=== PATIENT | female | born 2005 | race Two or more races ===

== ENCOUNTER 2023-06-14 12:19 | Outpatient (OUT) | payer OTHER, SELFPAY ==
--- NOTE | 2023-06-14 12:40 | ECG_ITS ---
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
[2023-06-14 13:16] LABS: Basophils Percent Auto 0.8 % (0.2-2.0); Eosinophils Absolute Auto 0.1 10^3/uL (0.0-0.7); Hematocrit 39.5 % (36.0-48.0); Hemoglobin 13.3 g/dL (12.0-16.0); Immature Granulocytes Abs Auto 0.02 10^3/uL (0.00-0.03); Immature Granulocytes Pct Auto 0.4 % (0.0-0.5); Lymphocytes Absolute Auto 1.9 10^3/uL (1.2-3.8); Lymphocytes Percent Auto 38.5 % (20.5-60.0); Mean Corpuscular HGB Conc 33.7 g/dL (29.9-35.2); Mean Corpuscular Hemoglobin 28.7 pg (26.7-34.0); Mean Corpuscular Volume 85.3 fL (81.0-99.0); Mean Platelet Volume 8.4 fL (9.5-13.5); Monocytes Absolute Auto 0.4 10^3/uL (0.3-0.8); Monocytes Percent Auto 8.6 % (1.7-12.0); Neutrophils Absolute Auto 2.5 10^3/uL (1.4-6.5); Neutrophils Percent Auto 50.7 % (43.0-75.0); Platelet Count 329 10^3/uL (150-450); Red Blood Count 4.63 10^6/uL (4.20-5.40); Red Cell Distribution Width 11.9 % (11.0-15.0); White Blood Count 4.9 10^3/uL (4.0-11.0)
[2023-06-14 15:33] LABS: INR 0.97; Partial Thromboplastin Time 29.8 sec (22.3-36.2); Prothrombin Time 10.3 sec (9.0-11.6)
== END 2023-06-14 12:20 | disposition home or self-care (01) ==
PROVIDERS: PCP Nurse Practitioner; Visit Provider Otolaryngology
DX: Z01.810 Encounter for preprocedural cardiovascular examination (principal); Z01.812 Encounter for preprocedural laboratory examination; R04.0 Epistaxis
CPT/HCPCS: 85025; 85610; 85730; 93005

== ENCOUNTER 2023-06-22 07:30 | Day surgery (SDC) | payer OTHER, SELFPAY ==
[2023-06-14 12:51] VITALS: BP 126/78; PULSE 71; RESP 16; TEMP 36.3; O2SAT 100; BMI 28.1
[2023-06-22] VITALS (10 sets, daily range): BP systolic 103–140; BP diastolic 41–85; PULSE 74–96; RESP 11–23; TEMP 35.9–36.3; O2SAT 97–100; BMI 27.6
--- NOTE | 2023-06-22 | OP_ITS ---
OPERATION DATE: 06/22/2023 PRIMARY CARE PROVIDER: VANESSA Robin SURGEON: Alivia Witt M.D. PREOPERATIVE DIAGNOSIS: Recurrent right epistaxis. POSTOPERATIVE DIAGNOSIS: Recurrent right epistaxis and left epistaxis. PROCEDURE: Bilateral nasal endoscopy and cautery. ANESTHESIA: General endotracheal. COMPLICATIONS: None. FINDINGS: Prominent right anteroseptal veins and active bleeding from the left anterior septum. INDICATIONS: This 18-year-old woman presented with recurrent epistaxis from the right due to the above findings and was noted intraoperatively to also have active bleeding from a prominent vein of the left anterior septum. PROCEDURE: Patient identified in the holding area and taken back to the OR, where she was placed in the supine position. After induction of general endotracheal anesthesia, the right nose was approached with the nasal endoscope and the prominent veins noted preoperatively were cauterized with suction Bovie. Afrin soaked pledgets were placed in each side of the nose, and the patient was noted to have brisk bleeding from the left anterior septum as well. After waiting adequate time for hemostasis, the left anterior septal pledget was removed and the prominent anterior septal vein was cauterized with suction Bovie. Then, both sides of the nose were examined with the nasal endoscope, and there were no other significant findings. Antibiotic ointment was then placed in each side of the nose and the patient was awakened and taken to the recovery room in good condition. KAY
--- OUTSIDE RECORDS SUMMARY | 2023-06-22 07:35 | XMS_ITS | CCD ---
Author Name Unknown Address [address] [place] [address] Organization [facility] Care Team Providers Care Customer Support Representative Name Role Phone HERNAN SOUSA Unavailable Unavailable ESCOTO, DIPAKKUMAR Unavailable Unavailable ESCOTO, DIPAKKUMAR Unavailable Unavailable GISSER ABDULKADIR Unavailable Unavailable ESCOTO, DIPAKKUMAR Unavailable Unavailable ESCOTO, DIPAKKUMAR Unavailable Unavailable ESCOTO, DIPAKKUMAR Unavailable Unavailable GISSER ABDULKADIR Unavailable Unavailable GISSER, ABDULKADIR Unavailable Unavailable ESCOTO, DIPAKKUMAR Unavailable Unavailable ESCOTO, DIPAKKUMAR Unavailable Unavailable CHAVA JURADO Unavailable Unavailable CHAVA JURADO Unavailable Unavailable PROVIDER, UNKNOWN Unavailable Unavailable ESCOTO, DIPAKKUMAR Unavailable Unavailable Lynn Escoto MD Primary Care Provider [phone] LYNN ESCOTO Primary Care Unavailable DEJA JIM Referring UnavailHaris Mosher DO Primary Care Provider Cami Wagner NP Unavailable Brittni Pedro NP Unavailable CAMI WAGNER Attending Unavailable ALIVIA IPNO Attending Unavailable CAMI WAGNER Referring Unavailable Allergies Allergy Classification Reported Allergen(s) Allergy Type Date of Onset Reaction(s) Facility (6 sources) Amoxicillin Drug Allergy 3 Diarrhea [facility] (6 sources) Amoxicillin-Pot Clavulanate Drug Allergy 3 GI intolerance [facility] Medications Current Medications Medication Drug Class(es) Dates Sig (Normalized) Sig (Original) [id number] 200 actuat albuterol 0.09 mg/actuat metered dose inhaler (7 sources) beta2-Adrenergic Agonist Start: 11-17-2019 take 2 puff(s) by inhalation every six hours as needed for wheezing albuterol sulfate HFA (PROAIR HFA) 108 (90 Base) MCG/ACT inhaler Inhale 2 puffs into the lungs every 6 hours as needed for Wheezing 1 Inhaler 3 11/17/2019 Active take 1 puff(s) by in halation every four hours albuterol HFA 90 mcg/act inhaler Inhale 1 puff every 4 (four) hours if needed. 0 Active ethinyl estradiol 0.035 mg / norgestimate 0.25 mg oral tablet (1 source) Progestin, Estrogen Start: 11-21-2020 take 1 tablet by mouth once daily norgestimate-ethinyl estradiol (ORTHO-CYCLEN, 28,) 0.25-35 MG-MCG per tablet Indications: Irregular menses Take 1 tablet by mouth daily 3 packet 4 11/21/2020 Active hyoscyamine sulfate 0.125 mg oral tablet (6 sources) take 1 tablet by mouth every four hours as needed for diarrhea hyoscyamine (Levsin) 0.125 MG tablet Take 0.125 mg by mouth every 4 (four) hours if needed for cramping or diarrhea. 0 Active loratadine 10 mg oral tablet (6 sources) loratadine (Clar itin) 10 MG tablet Take 10 mg by mouth if needed for allergies. 0 Active 24 hr metFORMIN hydrochloride 500 mg extended release oral tablet (2 sources) Biguanide Start: 01-21-2023 End: 01-21-2024 take 1 tablet by mouth every twenty-four hours at mealtime metFORMIN XR (Glucophage-XR) 500 MG 24 hr tablet Indications: Insulin resistance Take 1 tablet (500 mg) by mouth in the evening. Take with meals. Do not crush, chew, or split. 30 tablet 01/21/2023 06/01/2023 Discontinued (Therapy completed) montelukast 10 mg oral tablet (6 sources) Leukotriene Receptor Antagonist Start: 05-19-2022 take 1 tablet by mouth at bedtime montelukast (Singulair) 10 MG tablet Take 10 mg by mouth at bedtime. 0 05/19/2022 Active spironolactone 50 mg oral tablet (6 sources) Aldosterone Antagonist Start: 03-07-2023 take 1 tablet by mouth once daily spironolactone (Aldactone) 50 MG tablet Indications: PCOS (polycystic ovarian syndrome) TAKE 1 TABLET BY MOUTH EVERY DAY 90 tablet 3 03/07/2023 Active Problems Active Problems Problem Classification Problem Date Documented Da te Episodic/Chronic Conduction disorders (7 sources) Incomplete right bundle branch block; Translations: [Unspecified right bundle-branch block] Onset: 8 11-10-2017 Chronic Esophageal disorders (6 sources) Gastroesophageal reflux disease; Translations: [Gastro-esophageal reflux disease without esophagitis] Onset: 3 10-12-2022 Chronic Nonmalignant breast conditions (1 source) Mastodynia; Translations: [Mastodynia] Episodic Other endocrine disorders (7 sources) Polycystic ovary syndrome; Translations: [Polycystic ovarian syndrome] Onset: 7 07-15-2016 Chronic Other gastrointestinal disorders (7 sources) Irritable bowel syndrome with diarrhea; Translations: [Irritable bowel syndrome with diarrhea] Onset: 8 06-03-2020 Chronic Other upper respiratory disease (7 sources) Allergic rhinitis due to pollen; Translations: [Allergic rhinitis due to pollen] Onset: 8 09-03-2017 Chronic Other upper respiratory disease (3 sources) Epistaxis; Translations: [Epistaxis] 06-01-2023 Episodic Thyroid disorders (6 sources) Goiter; Translations: [Nontoxic goiter, unspecified] Onset: 3 10-12-2022 Chronic Past or Other Problems Problem Classification Problem Date Documented Da te Episodic/Chronic Biliary tract disease (7 sources) Biliary calculus; Translations: [Calculus of gallbladder without cholecystitis without obstruction] Onset: 11-02-2016 02-01-2017 Episodic Other gastrointestinal disorders (6 sources) Slow transit constipation; Translations: [Slow transit constipation] Onset: 10-12-2022 10-12-2022 Episodic Results Test Name Value Interpretation Reference Range Facility US Thyroidon 07-14-2021 US Thyroid HISTORY: Family history of thyroid cancer COMPARISON: None available TECHNIQUE: Ultrasound examination was performed of the thyroid gland. FINDINGS: The right lobe measures 5 x 1.6 x 1.5 cm. Normal blood flow identified to the right lobe of the thyroid gland. No nodules or masses identified. The left lobe measures 5.1 x 1.5 x 1.2 cm. Normal blood flow identified to the right lobe of the thyroid gland. No nodules or masses identified. The isthmus measures 0.22 cm. IMPRESSION: Normal examination. TI-RADS 1: Benign. No FNA required TI-RADS 2: Not suspicious. No FNA required TI-RADS 3: Mildly suspicious. FNA if greater than or equal to 2.5 cm. Follow-up if greater than or equal to 1.5 cm at 1, 3, and 5 years. TI-RADS 4: Moderately suspicious. FNA if greater than or equal to 1.5 cm. Follow-up if greater than or equal to 1 cm at 1, 2, 3, and 5 years. TI-RADS 5: Highly suspicious. FNA if greater than or equal to 1 cm. Follow-up if greater than or equal to 0.5 cm annually for up to 5 years. Report reported and signed by Alex Connors on 07/14/2021 1425 Normal [facility] Complete Blood Count with Au to Diffon 05-09-2021 Basophils (Bld) [#/Vol] 0.04 10*3/uL Normal 0.00-0.20 [facility] Specialist Comment on above: Performed By: #### V ITD, CBCAD, LIPD, CMP, TSH reflex FT4 #### [facility] [address], [place] [id number] Basophils/100 WBC (Bld) 0.9 % Normal [facility] Comment on above: Performed By: #### V ITD, CBCAD, LIPD, CMP, TSH reflex FT4 #### [facility] [address], [place] [id number] Eosinophils (Bld) [#/Vol] 0.06 10*3/uL Normal 0.02-0.50 [facility] Comment on above: Performed By: #### V ITD, CBCAD, LIPD, CMP, TSH reflex FT4 #### [facility] [address], [place] [id number] Eosinophils/100 WBC (Bld) 1.3 % Normal [facility] Comment on above: Performed By: #### V ITD, CBCAD, LIPD, CMP, TSH reflex FT4 #### [facility] [address], [place] [id number] Erythrocyte distribution width (RBC) [Ratio] 12.2 % Normal 11.0-15.0 [facility] Comment on above: Performed By: #### V ITD, CBCAD, LIPD, CMP, TSH reflex FT4 #### [facility] [address], [place] [id number] Hematocrit (Bld) [Volume fraction] 43.2 % Normal 35.0-47.0 [facility] Comment on above: Performed By: #### V ITD, CBCAD, LIPD, CMP, TSH reflex FT4 #### [facility] [address], [place] [id number] Hemoglobin (Bld) [Mass/Vol] 14.2 g/dL Normal 11.6-15.5 [facility] Comment on above: Performed By: #### V ITD, CBCAD, LIPD, CMP, TSH reflex FT4 #### [facility] [address], [place] [id number] Lymphocytes (Bld) [#/Vol] 1.9 10*3/uL Normal 0.9-3.9 [facility] Comment on above: Performed By: #### V ITD, CBCAD, LIPD, CMP, TSH reflex FT4 #### [facility] [address], [place] [id number] Lymphocytes/100 WBC (Bld) 40.3 % Normal [facility] Comment on above: Performed By: #### V ITD, CBCAD, LIPD, CMP, TSH reflex FT4 #### [facility] [address], [place] [id number] MCH (RBC) [Entitic mass] 28.6 pg Normal 27.0-33.0 [facility] Comment on above: Performed By: #### V ITD, CBCAD, LIPD, CMP, TSH reflex FT4 #### [facility] [address], [place] [id number] MCHC (RBC) [Mass/Vol] 32.9 g/dL Normal 32.0-36.0 [facility] Comment on above: Performed By: #### V ITD, CBCAD, LIPD, CMP, TSH reflex FT4 #### [facility] [address], [place] [id number] MCV (RBC) [Entitic vol] 87 fL Normal 80-100 [facility] Specialist Comment on above: Performed By: #### V ITD, CBCAD, LIPD, CMP, TSH reflex FT4 #### [facility] [address], [place] [id number] Monocytes (Bld) [#/Vol] 0.5 10*3/uL Normal 0.2-0.9 [facility] Specialist Comment on above: Performed By: #### V ITD, CBCAD, LIPD, CMP, TSH reflex FT4 #### [facility] [address], [place] [id number] Monocytes/100 WBC (Bld) 10.2 % Normal [facility] Specialist Comment on above: Performed By: #### V ITD, CBCAD, LIPD, CMP, TSH reflex FT4 #### [facility] [address], [place] [id number] Neutrophils (Bld) [#/Vol] 2.2 10*3/uL Normal 1.5-7.8 [facility] Specialist Comment on above: Performed By: #### V ITD, CBCAD, LIPD, CMP, TSH reflex FT4 #### [facility] [address], [place] [id number] Neutrophils/100 WBC (Bld) 47.1 % Normal [facility] Specialist Comment on above: Performed By: #### V ITD, CBCAD, LIPD, CMP, TSH reflex FT4 #### [facility] [address], [place] [id number] Platelet mean volume (Bld) [Entitic vol] 9.30 fL Normal 7.50-12.50 [facility] Specialist Comment on above: Performed By: #### V ITD, CBCAD, LIPD, CMP, TSH reflex FT4 #### [facility] [address], [place] [id number] Platelets (Bld) [#/Vol] 289 10*3/uL Normal 140-400 [facility] Specialist Comment on above: Performed By: #### V ITD, CBCAD, LIPD, CMP, TSH reflex FT4 #### [facility] [address], [place] [id number] RBC (Bld) [#/Vol] 4.97 10*6/uL Normal 3.90-5.20 [facility] [employer] Comment on above: Performed By: #### V ITD, CBCAD, LIPD, CMP, TSH reflex FT4 #### [facility] [address], [place] [id number] RDW-SD 38.6 fL Normal 37.0-50.0 [facility] [employer] Comment on above: Performed By: #### V ITD, CBCAD, LIPD, CMP, TSH reflex FT4 #### [facility] [address], [place] [id number] WBC (Bld) [#/Vol] 4.6 10*3/uL Normal 3.8-11.0 [facility] [employer] Comment on above: Performed By: #### V ITD, CBCAD, LIPD, CMP, TSH reflex FT4 #### [facility] [address], [place] [id number] Comprehensive Metabolic Pane [facility] 05-09-2021 Albumin [Mass/Vol] 5.1 g/dL Normal 3.6-5.1 [facility] [employer] Comment on above: Performed By: #### V ITD, CBCAD, LIPD, CMP, TSH reflex FT4 #### [facility] [address], [place] [id number] Albumin/Globulin [Mass ratio] 2.1 {ratio} Normal 1.0-2.5 [facility] [employer] Comment on above: Performed By: #### V ITD, CBCAD, LIPD, CMP, TSH reflex FT4 #### [facility] [address], [place] [id number] ALP [Catalytic activity/Vol] 59 U/L Normal 35-119 [facility] [employer] Comment on above: Performed By: #### V ITD, CBCAD, LIPD, CMP, TSH reflex FT4 #### [facility] [address], [place] [id number] ALT [Catalytic activity/Vol] 18 U/L Normal 6-33 [facility] [employer] Comment on above: Result Comment: 03/26 Female reference range changed. Performed By: #### V ITD, CBCAD, LIPD, CMP, TSH reflex FT4 #### [facility] [address], [place] [id number] Anion gap [Moles/Vol] 18 mmol/L Normal 12-20 [facility] Comment on above: Result Comment: Effdouglas ctive 05/01/2019 reference range changed. Performed By: #### V ITD, CBCAD, LIPD, CMP, TSH reflex FT4 #### [facility] [address], [place] [id number] AST [Catalytic activity/Vol] 21 U/L Normal 9-34 [facility] Comment on above: Performed By: #### V ITD, CBCAD, LIPD, CMP, TSH reflex FT4 #### [facility] [address], [place] [id number] Bilirubin [Mass/Vol] 0.41 mg/dL Normal 0.30-1.20 [facility] Comment on above: Performed By: #### V ITD, CBCAD, LIPD, CMP, TSH reflex FT4 #### [facility] [address], [place] [id number] BUN/CREA 22 Ratio Normal 6-22 [facility] Comment on above: Performed By: #### V ITD, CBCAD, LIPD, CMP, TSH reflex FT4 #### [facility] [address], [place] [id number] Calcium [Mass/Vol] 10.0 mg/dL Normal 8.6-10.2 [facility] Comment on above: Performed By: #### V ITD, CBCAD, LIPD, CMP, TSH reflex FT4 #### [facility] [address], [place] [id number] Chloride [Moles/Vol] 103 mmol/L Normal 98-107 [facility] Comment on above: Performed By: #### V ITD, CBCAD, LIPD, CMP, TSH reflex FT4 #### [facility] [address], [place] [id number] CO2 [Moles/Vol] 23 mmol/L Normal 20-31 [facility] Comment on above: Performed By: #### V ITD, CBCAD, LIPD, CMP, TSH reflex FT4 #### [facility] [address], [place] [id number] Creatinine [Mass/Vol] 0.5 mg/dL Low 0.6-1.4 [facility] Text[employer] Comment on above: Performed By: #### V ITD, CBCAD, LIPD, CMP, TSH reflex FT4 #### [facility] [address], [place] [id number] Globulin (S) [Mass/Vol] 2.4 g/dL Normal 1.9-3.7 [facility] [employer] Comment on above: Performed By: #### V ITD, CBCAD, LIPD, CMP, TSH reflex FT4 #### [facility] [address], [place] [id number] Glucose [Mass/Vol] 87 mg/dL Normal 65-99 [facility] [place] [employer] Comment on above: Result Comment: For FASTING Glucose --- ADA reference ranges: Normal 65-99 mg/dl Prediabetes 100-125 Diabetes >/= 126 Performed By: #### V ITD, CBCAD, LIPD, CMP, TSH reflex FT4 #### [facility] [address], [place] [id number] Potassium [Moles/Vol] 4.1 mmol/L Normal 3.5-5.5 [facility] Text[employer] Comment on above: Performed By: #### V ITD, CBCAD, LIPD, CMP, TSH reflex FT4 #### [facility] [address], [place] [id number] Protein [Mass/Vol] 7.5 g/dL Normal 6.1-8.1 [facility] [place] [employer] Comment on above: Performed By: #### V ITD, CBCAD, LIPD, CMP, TSH reflex FT4 #### [facility] [address], [place] [id number] Sodium [Moles/Vol] 139 mmol/L Normal 135-146 [facility] [place] [employer] Comment on above: Performed By: #### V ITD, CBCAD, LIPD, CMP, TSH reflex FT4 #### [facility] [address], [place] [id number] Urea nitrogen [Mass/Vol] 12 mg/dL Normal 7-25 [facility] Text[employer] Comment on above: Performed By: #### V ITD, CBCAD, LIPD, CMP, TSH reflex FT4 #### [facility] [address] [place] [id number] Hemoglobin A1Con 05-09-2021 EAG 93.93 Normal [facility] Specialist Comment on above: Performed By: #### 3 6336, %SBNOCULI, 38030C, %SBRAST, 3020X, 7302A #### [facility] [address] [place] [address] HbA1c (Bld) [Mass fraction] 4.9 % Normal 4.0-6.0 [facility] Specialist Comment on above: Performed By: #### 3 6336, %SBNOCULI, [id number], %SBRAST, 3020X, 7302A #### [facility] [address] [place] [address] Lipid Panelon 05-09-2021 Cholesterol [Mass/Vol] 189 mg/dL Normal 125-200 [facility] Specialist Comment on above: Result Comment: Low risk < 200mg/dL Borderline risk 201-239 mg/dl High risk > or equal to 240 Performed By: #### V ITD, CBCAD, LIPD, CMP, TSH reflex FT4 #### [facility] [address] [place] [id number] Cholesterol in HDL [Mass/Vol] 73 mg/dL Normal >40 [facility] [employer] Comment on above: Result Comment: High Cardiovascular Risk HDL <40 mg/dL Low Cardiovascular Risk HDL > or equal to 60 mg/dl Performed By: #### V ITD, CBCAD, LIPD, CMP, TSH reflex FT4 #### [facility] [address] [place], [place] [id number] Cholesterol in LDL [Mass/Vol] 101 mg/dL Normal [facility] Specialist Comment on above: Result Comment: LDL ATP III CLASSIFICATION LDL less than 100 mg/dl Optimal LDL 100-129 mg/dl Near or above optimal LDL 130-159 Borderline high LDL 160-189 High LDL greater than 189 mg/dl Very High Performed By: #### V ITD, CBCAD, LIPD, CMP, TSH reflex FT4 #### [facility] [address] [place] [id number] Cholesterol in VLDL [Mass/Vol] 15 mg/dL Normal [facility] [place] [employer] Comment on above: Performed By: #### V ITD, CBCAD, LIPD, CMP, TSH reflex FT4 #### [facility] [address], [place] [id number] Cholesterol.total/Cho lesterol in HDL [Mass ratio] 3 {ratio} Normal [facility] Specialist Comment on above: Performed By: #### V ITD, CBCAD, LIPD, CMP, TSH reflex FT4 #### [facility] [address], [place] [id number] Triglyceride [Mass/Vol] 74 mg/dL Normal 30-150 [facility] Specialist Comment on above: Result Comment: TRIG ATPIII CLASSIFICATIONS TRIG less than 150 mg/dl Normal TRIG 150-199 mg/dl Borderline High TRIG 200-500 mg/dl High TRIG greather than 500 mg/dl Very High Performed By: #### V ITD, CBCAD, LIPD, CMP, TSH reflex FT4 #### [facility] [address], [place] [id number] Q - CELIAC DISEASE COMP PANE Kaveh 05-09-2021 IMMUNOGLOBULIN A 183 mg/dL Normal 47-310 [facility] Specialist Comment on above: Order Comment: [facility] performed at: [facility] [facility], [address] [place] [address], [address] [place] [address], [address] [place] [address], Drilling Engineer: Alfa William MD [facility] Date/Time: [facility] Results Received Date/Time: [facility] Reported Date/Time: Performed By: #### 3 6336, %SBNOCULI, [id number], %SBRAST, 3020X, 7302A #### [facility] [address] [place] [address] INTERPRETATION SEE NOTE Normal [facility] Specialist Comment on above: Order Comment: [facility] performed at: [facility], [address] [facility], [address] [place] [address], [phone], Drilling Engineer: Alfa William MD [facility] Date/Time: [facility] Results Received Date/Time: [facility] Reported Date/Time: Result Comment: No s erological evidence for celiac disease is present. tTg may normalize in individuals with celiac disease who maintain a gluten free diet. If high suspicion of celiac disease, consider HLA DQ2 and DQ8 testing to rule out celiac disease. Performed By: #### 3 6336, %SBNOCULI, 71143V, %SBRAST, 3020X, 7302A #### [facility] [address] [place] [address] Result Comment: Specific Level of Allergen IGE Class kU/L Specific IGE Antibody ----- --------- 0 <0.10 Absent/Undetectable 0/1 0.10-0.34 Very Low Level 1 0.35-0.69 Low Level 2 0.70-3.49 Moderate Level 3 3.50-17.4 High Level 4 17.5-49.9 Very High Level 5 50-100 Very High Level 6 >100 Very High Level The clinical relevance of allergen results of 0.10-0.34 kU/L are undetermined and intended for specialist use. Allergens denoted with a include results using one or more analyte specific reagents. In those cases, the test was developed and its analytical performance characteristics have been determined by [employer]. It has not been cleared or approved by the U.S. Food and Drug Administration. This assay has been validated pursuant to the CLIA regulations and is used for clinical purposes. TISSUE TRANSGLUTAMINASE AB, IGA <1.0 Normal [facility] [employer] Comment on above: Order Comment: [facility] performed at: [facility], [employer] [facility], [address] [place] [address], [address] [place] [address], [place], [address], Drilling Engineer: Alfa William MD [facility] Date/Time: [facility] Results Received Date/Time: [facility] Reported Date/Time: Result Comment: Valu e Interpretation ----- <15.0 Antibody not detected > or = 15.0 Antibody detected Performed By: #### 3 6336, %SBNOCULI, [id number], %SBRAST, 3020X, 7302A #### [facility] [address] [place] [address] Q - FOOD ALLERGY PROFILEon 0 05-09-2021 ALMOND (F20) IGE <0.10 Normal [facility] Specialist Comment on above: Order Comment: [facility] performed at: [employer], [employer] [facility], [address], [address] [place] [address], [address] [place] [address], Drilling Engineer: Alfa William MD [facility] Date/Time: [facility] Results Received Date/Time: [facility] Reported Date/Time: Performed By: #### 3 6336, %SBNOCULI, 79830D, %SBRAST, 3020X, 7302A #### [facility] Default [address] [place] [address] CASHEW NUT (F202) IGE <0.10 Normal [facility] Comment on above: Order Comment: [facility] performed at: [employer], [employer] [facility], [address], [address] [place] [address], [address] [place] [address], Drilling Engineer: Alfa William MD [facility] Date/Time: [facility] Results Received Date/Time: [facility] Reported Date/Time: Performed By: #### 3 6336, %SBNOCULI, [id number], %SBRAST, 3020X, 7302A #### [facility] [address] [place] [address] CLASS 0 Normal [facility] Specialist Comment on above: Order Comment: [facility] performed at: [employer], [employer] [facility], [address], [address] [place] [address], [address] [place] [address], Drilling Engineer: Alfa William MD [facility] Date/Time: [facility] Results Received Date/Time: [facility] Reported Date/Time: Performed By: #### 3 6336, %SBNOCULI, 61731B, %SBRAST, 3020X, 7302A #### [facility] [address] [place] [address] CLASS 0/1 Normal [facility] [employer] Comment on above: Order Comment: [facility] performed at: [employer], [employer] [facility], [address] [facility], [address] [place] [address], [address] [place] [address], Drilling Engineer: Alfa William MD [facility] Date/Time: [facility] Results Received Date/Time: [facility] Reported Date/Time: Performed By: #### 3 6336, %SBNOCULI, 47671R, %SBRAST, 3020X, 7302A #### [facility] Default [address] [place] [address] CODFISH (F3) IGE <0.10 Normal [facility] Specialist Comment on above: Order Comment: [facility] performed at: [employer], [employer] [facility], [address] [place] [address], [address] [place] [address], [address] [place] [address], Drilling Engineer: Alfa William MD [facility] Date/Time: [facility] Results Received Date/Time: [facility] Reported Date/Time: Performed By: #### 3 6336, %SBNOCULI, 28850E, %SBRAST, 3020X, 7302A #### [facility] Default [address] [place] [address] COW'S MILK (F2) IGE <0.10 Normal [facility] Specialist Comment on above: Order Comment: [facility] performed at: [employer], [employer] [facility], [address] [place] [address], [address] [place] [address], [address] [place] [address], Drilling Engineer: Alfa William MD [facility] Date/Time: [facility] Results Received Date/Time: [facility] Reported Date/Time: Performed By: #### 3 6336, %SBNOCULI, 10599S, %SBRAST, 3020X, 7302A #### [facility] Default [address] [place] [address] EGG WHITE (F1) IGE <0.10 Normal [facility] rn [place] [employer] Comment on above: Order Comment: [facility] performed at: [facility], [employer] [facility], [address] [place] [address], [address] [place] [address], [address] [place] [address], Drilling Engineer: Alfa William MD [facility] Date/Time: [facility] Results Received Date/Time: [facility] Reported Date/Time: Performed By: #### 3 6336, %SBNOCULI, [id number], %SBRAST, 3020X, 7302A #### [facility] [address] [place] [address] HAZELNUT (F17) IGE 0.10 kU/L High [facility] [place] [employer] Comment on above: Order Comment: Quest Testing performed at: [facility], [employer] [facility], [address] [place] [address], [address] [place] [address], [address] [place] [address], Drilling Engineer: Alfa William MD Quest Collection Date/Time: Quest Results Received Date/Time: Quest Reported Date/Time: Performed By: #### 3 [id number], %SBNOCULI, [id number], %SBRAST, 3020X, [id number] #### [facility] Default [address] [place] [address] PEANUT (F13) IGE <0.10 Normal [facility] [employer] Comment on above: Order Comment: Quest Testing performed at: [facility], [employer] [facility], [address] [facility], [address] [place] [address], [address] [place] [address], Drilling Engineer: Alfa William MD Quest Collection Date/Time: Quest Results Received Date/Time: Quest Reported Date/Time: Performed By: #### 3 [id number], %SBNOCULI, [id number], %SBRAST, 3020X, [id number] #### [facility] Default [address] [place] [address] SALMON (F41) IGE <0.10 Normal [facility] Specialist Comment on above: Order Comment: Quest Testing performed at: [employer], [employer] [facility], [address] [place] [address], [address] [place] [address], [address] [place] [address], Drilling Engineer: Alfa William MD Quest Collection Date/Time: Quest Results Received Date/Time: Quest Reported Date/Time: Performed By: #### 3 [id number], %SBNOCULI, [id number], %SBRAST, 3020X, [id number] #### [facility] Default [address] [place] [address] SCALLOP (F338) IGE <0.10 Normal [facility] Comment on above: Order Comment: Quest Testing performed at: [employer], [employer] [facility], [address] [place] [address], [address] [place] [address], [address] [place] [address], Drilling Engineer: Alfa William MD Quest Collection Date/Time: Quest Results Received Date/Time: Quest Reported Date/Time: Performed By: #### 3 [id number], %SBNOCULI, [id number], %SBRAST, 3020X, [id number] #### [facility] Default [address] [place] [address] SESAME SEED (F10) IGE 0.12 kU/L [facility] Comment on above: Order Comment: Quest Testing performed at: [facility], [employer] [facility], [facility], [address] [place] [address], [address] [place] [address], Drilling Engineer: Alfa William MD Quest Collection Date/Time: Quest Results Received Date/Time: Quest Reported Date/Time: Performed By: #### 3 [id number], %SBNOCULI, 48044N, %SBRAST, 3020X, [id number] #### [facility] Default [address] [place] [address] SHRIMP (F24) IGE <0.10 Normal [facility] [employer] Comment on above: Order Comment: Quest Testing performed at: [facility], [employer] [facility], [address] , [address] [place] [address], [address] [place] [address], Drilling Engineer: Alfa William MD Quest Collection Date/Time: Quest Results Received Date/Time: Quest Reported Date/Time: Performed By: #### 3 [id number], %SBNOCULI, [id number], %SBRAST, 3020X, [id number] #### [facility] Default [address] [place] [address] SOYBEAN (F14) IGE <0.10 Normal [facility] Specialist Comment on above: Order Comment: Quest Testing performed at: [facility], [employer] [facility], [address], [address] [place] [address], [address] [place] [address], Drilling Engineer: Afla William MD Quest Collection Date/Time: Quest Results Received Date/Time: Quest Reported Date/Time: Performed By: #### 3 [id number], %SBNOCULI, [id number], %SBRAST, 3020X, [id number] #### [facility] Default [address] [place] [address] TUNA (F40) IGE <0.10 Normal [facility] Specialist Comment on above: Order Comment: Quest Testing performed at: [facility], [employer] [facility], [address], [address] [place] [address], [address] [place] [address], Drilling Engineer: Alfa William MD Quest Collection Date/Time: Quest Results Received Date/Time: Quest Reported Date/Time: Performed By: #### 3 [id number], %SBNOCULI, 25192A, %SBRAST, 3020X, [id number] #### [facility] Default [address] [place] [address] WALNUT (F256) IGE <0.10 Normal [facility] Text[employer] Comment on above: Order Comment: Quest Testing performed at: [facility], [employer] [facility], [address] , [address] [place] [address], [address] [place] [address], Drilling Engineer: Alfa William MD Quest Collection Date/Time: Quest Results Received Date/Time: Quest Reported Date/Time: Performed By: #### 3 [id number], %SBNOCULI, 64622D, %SBRAST, 3020X, [id number] #### [facility] Default [address] [place] [address] WHEAT (F4) IGE <0.10 Normal [facility] Specialist Comment on above: Order Comment: Quest Testing performed at: [facility], [employer] [facility], [address] , [address] [place] [address], [address] [place] [address], Drilling Engineer: Alfa William MD Quest Collection Date/Time: Quest Results Received Date/Time: Quest Reported Date/Time: Performed By: #### 3 [id number], %SBNOCULI, 43114E, %SBRAST, 3020X, [id number] #### [facility] Default [address] [place] [address] Q - THYROID PEROXIDASE AND T G ABon 05-09-2021 THYROGLOBULIN ANTIBODIES <1 Normal < or = 1 [facility] [employer] Comment on above: Order Comment: Quest Testing performed at: [facility], [employer] [facility], [address] , [address] [place] [address], [address] [place] [address], Drilling Engineer: Alfa William MD Quest Collection Date/Time: Quest Results Received Date/Time: Quest Reported Date/Time: Performed By: #### 3 [id number], %SBNOCULI, 54906K, %SBRAST, 3020X, [id number] #### [facility] Default [address] [place] [address] THYROID PEROXIDASE ANTIBODIES 1 IU/mL Normal <9 [facility] [employer] Comment on above: Order Comment: Quest Testing performed at: [employer], [employer] [facility], [address], [address] [place] [address], [address] [place] [address], Drilling Engineer: Alfa William MD Quest Collection Date/Time: Quest Results Received Date/Time: Quest Reported Date/Time: Performed By: #### 3 [id number], %SBNOCULI, [id number], %SBRAST, 3020X, [id number] #### [facility] Default [address] [place] [address] Q - UR CULT REFLEXon 022 REFLEXIVE URINE CULTURE SEE NOTE Normal [facility] [employer] Comment on above: Order Comment: Quest Testing performed at: [facility], [employer] [facility], [address], [address] [place] [address], [address] [place] [address], Drilling Engineer: Alfa William MD Quest Collection Date/Time: Quest Results Received Date/Time: Quest Reported Date/Time: Result Comment: NO C ULTURE INDICATED Performed By: #### 3 [id number], %SBNOCULI, 98551L, %SBRAST, 3020X, [id number] #### [facility] Default [address] [place] [address] Q - URINALYSIS,COMPLETE,WITH REFLEX TO CULTUREon 05-09-2021 Appearance (U) CLEAR Normal CLEAR [facility] [employer] Comment on above: Order Comment: Quest Testing performed at: [facility], [employer] [facility], [address], [address] [place] [address], [address] [place] [address], Drilling Engineer: Alfa William MD Quest Collection Date/Time: Quest Results Received Date/Time: Quest Reported Date/Time: Performed By: #### 3 [id number], %SBNOCULI, 80809L, %SBRAST, 3020X, [id number] #### [facility] Default [address] [place] [address] BACTERIA NONE SEEN Normal NONE SEEN [facility] [employer] Comment on above: Order Comment: Quest Testing performed at: [employer], [employer] [facility], [address] , [address] [place] [address], [address] [place] [address], Drilling Engineer: Alfa William MD Quest Collection Date/Time: Quest Results Received Date/Time: Quest Reported Date/Time: Performed By: #### 3 [id number], %SBNOCULI, 28991U, %SBRAST, 3020X, [id number] #### [facility] Default [address] [place] [address] Bilirubin Ql (U) Negative Normal NEGATIVE [facility] Specialist Comment on above: Order Comment: Quest Testing performed at: [facility], [employer] [facility], [address] , [address] [place] [address], [address] [place] [address], Drilling Engineer: Alfa William MD Quest Collection Date/Time: Quest Results Received Date/Time: Quest Reported Date/Time: Performed By: #### 3 [id number], %SBNOCULI, 57333U, %SBRAST, 3020X, [id number] #### [facility] Default [address] [place] [address] Color (U) YELLOW Normal YELLOW [facility] [employer] Comment on above: Order Comment: Quest Testing performed at: [employer] [facility], [address] , [address] [place] [address], [address] [place] [address], Drilling Engineer: Alfa William MD Quest Collection Date/Time: Quest Results Received Date/Time: Quest Reported Date/Time: Performed By: #### 3 [id number], %SBNOCULI, 69519J, %SBRAST, 3020X, [id number] #### [facility] Default [address] [place] [address] Glucose Ql (U) Negative Normal NEGATIVE [facility] [employer] Comment on above: Order Comment: Quest Testing performed at: [facility], [employer] [facility], [address] , [address] [place] [address], [address] [place] [address], Drilling Engineer: Alfa William MD Quest Collection Date/Time: Quest Results Received Date/Time: Quest Reported Date/Time: Performed By: #### 3 [id number], %SBNOCULI, 13715Q, %SBRAST, 3020X, [id number] #### [facility] Default [address] [place] [address] HYALINE CAST NONE SEEN Normal NONE SEEN [facility] [employer] Comment on above: Order Comment: Quest Testing performed at: [facility], [employer] [facility], [address] [place] [address], [address] [place] [address], [address] [place] [address], Drilling Engineer: Alfa William MD Quest Collection Date/Time: Quest Results Received Date/Time: Quest Reported Date/Time: Performed By: #### 3 [id number], %SBNOCULI, 67191S, %SBRAST, 3020X, [id number] #### [facility] Default [address] [place] [address] Ketones Ql (U) Negative Normal NEGATIVE [facility] Text[employer] Comment on above: Order Comment: Quest Testing performed at: [facility], [employer] [facility], [address] , [address] [place] [address], [address] [place] [address], Drilling Engineer: Alfa William MD Quest Collection Date/Time: Quest Results Received Date/Time: Quest Reported Date/Time: Performed By: #### 3 [id number], %SBNOCULI, [id number], %SBRAST, 3020X, [id number] #### [facility] Default [address] [place] [address] Leukocyte esterase Test strip Ql (U) Negative Normal NEGATIVE [facility] Text[employer] Comment on above: Order Comment: Quest Testing performed at: [facility], [employer] [facility], [address] , [address] [place] [address], [address] [place] [address], Drilling Engineer: Alfa William MD Quest Collection Date/Time: Quest Results Received Date/Time: Quest Reported Date/Time: Performed By: #### 3 [id number], %SBNOCULI, 39327K, %SBRAST, 3020X, [id number] #### [facility] Default [address] [place] [address] Nitrite Ql (U) Negative Normal NEGATIVE [facility] Text[employer] Comment on above: Order Comment: Quest Testing performed at: [employer], [employer] [facility], [address] [place] [address], [address] [place] [address], [address] [place] [address], Drilling Engineer: Alfa William MD Quest Collection Date/Time: Quest Results Received Date/Time: Quest Reported Date/Time: Performed By: #### 3 [id number], %SBNOCULI, 11026R, %SBRAST, 3020X, [id number] #### [facility] Default [address] [place] [address] OCCULT BLOOD Negative Normal NEGATIVE [facility] [employer] Comment on above: Order Comment: Quest Testing performed at: [facility], [employer] [facility], [address] , [address] [place] [address], [address] [place] [address], Drilling Engineer: Alfa William MD Quest Collection Date/Time: Quest Results Received Date/Time: Quest Reported Date/Time: Performed By: #### 3 [id number], %SBNOCULI, [id number], %SBRAST, 3020X, [id number] #### [facility] Default [address] [place] [address] pH (U) 6.5 [pH] Normal 5.0-8.0 [facility] [employer] Comment on above: Order Comment: Quest Testing performed at: [facility], [employer] [facility], [address] , [address] [place] [address], [address] [place] [address], Drilling Engineer: Alfa William MD Quest Collection Date/Time: Quest Results Received Date/Time: Quest Reported Date/Time: Performed By: #### 3 [id number], %SBNOCULI, 56826Z, %SBRAST, 3020X, [id number] #### [facility] Default [address] [place] [address] Protein Ql (U) Negative Normal NEGATIVE [facility] [employer] Comment on above: Order Comment: Quest Testing performed at: [facility], [employer] [facility], [address] [facility], [address] [place] [address], [address] [place] [address], Drilling Engineer: Alfa William MD Quest Collection Date/Time: Quest Results Received Date/Time: Quest Reported Date/Time: Performed By: #### 3 [id number], %SBNOCULI, 00075Q, %SBRAST, 3020X, [id number] #### [facility] Default [address] [place] [address] RBC NONE SEEN Normal < OR = 2 [facility] [employer] Comment on above: Order Comment: Quest Testing performed at: [facility], [employer] [facility], [address] [facility], [address] [place] [address], [address] [place] [address], Drilling Engineer: Alfa William MD Quest Collection Date/Time: Quest Results Received Date/Time: Quest Reported Date/Time: Performed By: #### 3 [id number], %SBNOCULI, [id number], %SBRAST, 3020X, [id number] #### [facility] Default [address] [place] [address] Specific gravity (U) [Rel density] 1.019 Normal 1.001-1.035 [facility] [employer] Comment on above: Order Comment: Quest Testing performed at: [facility], [employer] [facility], [address] [facility], [address] [place] [address], [address] [place] [address], Drilling Engineer: Alfa William MD Quest Collection Date/Time: Quest Results Received Date/Time: Quest Reported Date/Time: Performed By: #### 3 [id number], %SBNOCULI, [id number], %SBRAST, 3020X, [id number] #### [facility] Default [address] [place] [address] SQUAMOUS EPITHELIAL CELLS 0-5 Normal < OR = 5 [facility] [employer] Comment on above: Order Comment: Quest Testing performed at: [facility], [employer] [facility], [address] [facility], [address] [place] [address], [id number], Drilling Engineer: Alfa William MD Quest Collection Date/Time: Quest Results Received Date/Time: Quest Reported Date/Time: Performed By: #### 3 [id number], %SBNOCULI, [id number], %SBRAST, 3020X, [id number] #### [facility] Default [address] [place] [address] WBC NONE SEEN Normal < OR = 5 [facility] [employer] Comment on above: Order Comment: Quest Testing performed at: [facility], [employer] [facility], [address] [facility], [address] [place] [address], [address] [place] [address], Drilling Engineer: Alfa William MD Quest Collection Date/Time: Quest Results Received Date/Time: Quest Reported Date/Time: Performed By: #### 3 [id number], %SBNOCULI, 65902C, %SBRAST, 3020X, [id number] #### [facility] Default [address] [place] [address] TSH w/ Reflex to Free T4on 0 05-09-2021 TSH 2.230 uIU/mL Normal 0.400-4.500 [facility] [employer] Comment on above: Performed By: #### 3 [id number], %SBNOCULI, [id number], %SBRAST, 3020X, [id number] #### [facility] Default [address] [place] [address] Vitamin D 25-OHon 05-09-2021 VIT D 25 OH 54 ng/ml Normal >29 [facility] [employer] Comment on above: Result Comment: Lina min D Status Deficiency <20 ng/mL Insufficiency 20-29 ng/mL Optimal 30-100 ng/mL Possible Toxicity >=150 ng/mL Performed By: #### 3 [id number], %SBNOCULI, 83483F, %SBRAST, 3020X, [id number] #### [facility] Default [address] [place] [address] US BREAST LIMITED LEFTon US BREAST LIMITED LEFT EXAMINATION: TARGETED ULTRASOUND OF THE LEFT BREAST 03/13/2021 COMPARISON: None. HISTORY: ORDERING SYSTEM PROVIDED HISTORY: Breast pain, left FINDINGS: Ultrasound of the area of concern in the retroareolar left breast demonstrates no solid or cystic mass. Minimal retroareolar ductal ectasia. Dense fibroglandular tissue as expected. IMPRESSION: No suspicious findings retroareolar left breast ultrasound. Negative exam should not preclude the use of tissue biopsy if indicated clinically. BIRADS: BIRADS - CATEGORY 2 Benign Findings. Normal interval follow-up is recommended in 12 months. OVERALL ASSESSMENT - BENIGN A letter of notification will be sent to the patient regarding the results. [employer] recommends annual mammograms for women 40 years and older. Interpreted by: Eliseo Lazaro DO Signed by: Eliseo Lazaro DO 03/13/21 Final result Normal [facility] Radiology Study observation (narrative) [email or web address] Phone: No suspicious findings retroareolar left breast ultrasound. Negative exam should not preclude the use of tissue biopsy if indicated clinically. BIRADS: BIRADS - CATEGORY 2 Benign Findings. Normal interval follow-up is recommended in 12 months. OVERALL ASSESSMENT - BENIGN A letter of notification will be sent to the patient regarding the results. [employer] recommends annual mammograms for women 40 years and older. [facility] EXAMINATION: TARGETED ULTRASOUND OF THE LEFT BREAST 03/13/2021 COMPARISON: None. HISTORY: ORDERING SYSTEM PROVIDED HISTORY: Breast pain, left FINDINGS: Ultrasound of the area of concern in the retroareolar left breast demonstrates no solid or cystic mass. Minimal retroareolar ductal ectasia. Dense fibroglandular tissue as expected. [facility] US BREAST LIMITED LEFTOrdere d By: Eliseo Lazaro on 03-13-2021 [facility] Work Phone: Tissue Transglutaminase Ab I Thom 04-14-2017 Tissue Transglutaminase Ab IgA <20 Normal <20 [facility] Comment on above: Result Comment: Taryn ents being evaluated for celiac disease should have a total IgA test ordered along with a tissue transglutaminase (TTG) IgA as part of initial serologic testing because IgA deficiency occurs at a higher rate in such patients compared to the general population.Patients with low or undetectable total IgA who test negative in the TTG IgA test should have a deamidated gliadin IgG ordered as an add on test (if not already ordered).As of October 16, 2013, these results were obtained by a new chemiluminescent assay and may not be used interchangeably with results generated by previous EIA methods. The magnitude of the autoantibody levels cannot always be correlated to an endpoint titer. (NOTE) <20 Negative 20-30 Weakly Positive >30 Positive CRPon 04-13-2017 CRP mass conc mg/L Normal <1.2 [facility] IgAon 04-13-2017 IgA mass conc 183 mg/dL Normal 69-227 [facility] Sedimentation Rateon 017 Sedimentation Rate 2 mm/h Normal 0-20 [facility] Comment on above: Result Comment: Effe ctive 04/07/2017, this new method and reference interval has been implemented for erythrocyte sedimentation rates. [facility] Lab Reporton 12-15-2016 [facility] Lab Report SURGICAL PATHOLOGY REPORT Patient Name: SIMIN SCHUSTER [facility] Rec. # : [id number] : 2005 Specimen # : [id number] Date Taken: 12/15/2016 Date Reported: 12/16/2016 Specimen(s) Received Gallbladder Diagnosis A. Gallbladder, robotic-assisted laparoscopic cholecystectomy: - Benign gallbladder with cholelithiasis and reactive changes. - Benign lymph node; no significant pathologic alteration. - Negative for malignancy. Electronically Signed Out By Sean Santiago MD [facility]/12/16/2016 Sean Santiago MD Clinical History 11 year old female with cholelithiasis without cholecystitis. Operation - robotic assisted laparoscopy, cholecystectomy, robotic assisted. Gross Description Received the following specimen(s) in the Department of Pathology, labeled with the patient's name and hospital #: A. Gallbladder. A. The specimen is received fixed, designated Gallbladder, and consists of a 10.0-qo-fw-length, 2.8-zm-xh-diamater, intact, curved gallbladder with a purple-munguia, glistening serosa. The hepatic bed is roughened and bile-stained. The cystic duct is identified, and appears patent. There is a 1.3 x 0.7 x 0.3-cm, cystic duct lymph node. The lumen contains approximately 10 mL of thick, mucoid bile admixed with five bright yellow bosselated calculi measuring up to 1.3 cm in greatest dimension. The lumen is lined by a trabeculated dark green mucosa. The gallbladder wall is less than 1 mm in thickness, and no mucosal lesions are identified. [employer] sections are submitted in one cassette. Kandice Salazar MS, PA /12/16/2016 Microscopic Description A. Microscopic examination performed, and supports the diagnosis as rendered; negative for malignancy. Testing performed at [facility], [address] [place] [address], , . Normal [facility] Comment on above: Performed By: #### S URG ####Performed at [facility], [address] [place] [address] POCT HCG, Urine Qualitativeo n 12-15-2016 Comment: First morning urine is the specimen of choice for urine test. False negative results can occur when random urine specimens are tested. A serum test is recommended if results do not correlate with the patient's clinical condition. Normal [facility] HCG.beta subunit ( test) Ql (U) Negative Normal NEG [facility] Vital Signs Date Time Vital Sign Value Performing Clinician Faci lity 06-09-2023 10:36-0500 Body height 175.3 cm Alivia Pino MD Work Phone: [facility] 06-09-2023 10:36-0500 Body mass index (BMI) [Ratio] 27.62 kg/m2 Alivia Pino MD Work Phone: [facility] 06-09-2023 10:36-0500 Body weight 84.82 kg Alivia Pino MD Work Phone: [facility] 06-09-2023 10:36-0500 Diastolic blood pressure 93 mm[Hg] Alivia Pino MD Work Phone: [facility] 06-09-2023 10:36-0500 Systolic blood pressure 130 mm[Hg] Alivia Pino MD Work Phone: [facility] 06-01-2023 07:53-0500 Body height 175.3 cm Cami Fruth BILLING REPRESENTATIVE Work Phone: [facility] 06-01-2023 07:53-0500 Body mass index (BMI) [Ratio] 27.62 kg/m2 Cami Fruth BILLING REPRESENTATIVE Work Phone: [facility] 06-01-2023 07:53-0500 Body weight 84.82 kg Cami Fruth BILLING REPRESENTATIVE Work Phone: [facility] 06-01-2023 07:53-0500 Diastolic blood pressure 82 mm[Hg] Cami Fruth BILLING REPRESENTATIVE Work Phone: [facility] 06-01-2023 07:53-0500 Heart rate 81 /min Cami Fruth BILLING REPRESENTATIVE Work Phone: [facility] 06-01-2023 07:53-0500 Systolic blood pressure 110 mm[Hg] Cami Fruth BILLING REPRESENTATIVE Work Phone: [facility] Healthcare Encounters Encounter Date Encounter Type Care Provider Facility Start: 06-09-2023 Bamboo flowsheet Alivia linares MD Work Phone: [facility] Start: 06-09-2023 Bamboo flowsheet Alivia linares MD Work Phone: [facility] Start: 06-09-2023 End: 06-09-2023 ambulatory ALIVIA PINO Not Available Start: 06-09-2023 End: 06-09-2023 Office outpatient new 45 minutes Alivia Pino MD Work Phone: [facility] Comment on above: Epistaxis, recurrent Start: 06-05-2023 Chart abstracting Alivia faye MD Work Phone: [facility] [place] Start: 06-01-2023 Bamboo flowsheet Cami E Frut h BILLING REPRESENTATIVE Work Phone: [facility] Start: 06-01-2023 Bamboo flowsheet Cami E Frut h BILLING REPRESENTATIVE Work Phone: [facility] Start: 06-01-2023 End: 06-01-2023 ambulatory CAMI WAGNER Not Available Start: 06-01-2023 End: 06-01-2023 Office outpatient visit 15 minutes Cami Wagner BILLING REPRESENTATIVE Work Phone: [facility] Comment on above: Epistaxis, recurrent (Primary Dx) Start: 03-13-2021 End: 03-16-2021 ambulatory [facility] Start: 03-13-2021 End: 03-15-2021 Subsequent hospital visit by physician Mth Ultrasound Room [address] [facility] Ultrasound Comment on above: Breast pain, left Start: 11-30-2017 End: 11-30-2017 Patient encounter HERNAN Matthew MERRY [facility] Start: 08-16-2017 End: 08-16-2017 Patient encounter ABDULKADIR SALAS [facility] Start: 04-12-2017 [facility] Start: 12-15-2016 End: 12-16-2016 Patient encounter CHAVA JURADO [facility] Procedures Date Procedure Procedure Detail Performing Clinician Start: 03-13-2021 Us breast uni real t cassidy with image limited Deja Jim PASSENGER VESSEL CHEF - CNM Work Phone: Plan of Treatment Date Care Activity Detail Author Start: 11-20-2025 DTaP/Tdap/Td vaccine (6 - Td or Tdap) DTaP/Tdap/Td vaccine (6 - Td or Tdap) [facility] Start: 08-20-2023 End: 08-20-2023 Patient encounter procedure 08/20/2023 7:30 AM EDT Office Visit [facility] [address] [place] [id number] Fruth, Cami E, BILLING REPRESENTATIVE [address] [place] [address] [facility] Start: 06-09-2023 End: 06-09-2023 Patient encounter procedure [facility] Comment on above: Epistaxis, recurrent Start: 06-01-2023 End: 06-01-2023 Patient encounter procedure 06/01/2023 8:00 AM EST Office Visit [facility] [address] [place] [address] charly Cami Bearden, BILLING REPRESENTATIVE [address] [place] [address] Arrived [facility] Comment on above: Arrived Start: 12-25-2022 Influenza vaccination Influenza Vacc ine (#1) [facility] Start: 11-20-2021 End: 11-20-2021 Patient encounter procedure 11/20/2021 Office Visit Obstetrics and Gynecology Deja Jim, WES - [id number] [place] [address] [facility] Start: 12-25-2020 Influenza vaccination Flu vaccine (# 1) [facility] Start: 2019 Screening for Chlamy gray trachomatis Chlamydia screen [facility] Start: 2018 HIV screening HIV screen [facility] Start: 2014 HPV vaccine (1 - 2-d ose series) HPV vaccine (1 - 2-dose series) [facility] Start: 11-14-2008 Measles,Mumps,Rubell a (MMR) vaccine (2 of 2 - Standard series) Measles,Mumps,Rubella (MMR) vaccine (2 of 2 - Standard series) [facility] Start: 11-14-2008 Varicella vaccine (2 of 2 - 2-dose childhood series) Varicella vaccine (2 of 2 - 2-dose childhood series) [facility] Start: 01-04-2008 COVID-19 Vaccine (1) COVID-19 Vaccin e (1) [facility] Start: 01-04-2004 Hepatitis A vaccine (1 of 2 - 2-dose series) Hepatitis A vaccine (1 of 2 - 2-dose series) [facility] Start: 2003 Hepatitis B vaccine (3 of 3 - 3-dose primary series) Hepatitis B vaccine (3 of 3 - 3-dose primary series) [facility] Start: 2003 Hepatitis C screening Hepatitis C sc reen [facility] Immunizations Immunization Date Immunization Notes Care Provider Fa cili 03-09-2020 influenza, injectabl e, quadrivalent, preservative free Cami Fruth BILLING REPRESENTATIVE Work Phone: [facility] 03-09-2020 influenza virus vacc ine, unspecified formulation Cami Fruth BILLING REPRESENTATIVE Work Phone: [facility] 11-24-2019 meningococcal polysaccharide (groups A, C, Y and W-135) diphtheria toxoid conjugate vaccine (MCV4P) Cami Fruth BILLING REPRESENTATIVE Work Phone: [facility] 11-21-2015 meningococcal polysaccharide (groups A, C, Y and W-135) diphtheria toxoid conjugate vaccine (MCV4P) [facility] Work Phone: 11-21-2015 tetanus toxoid, redu daily diphtheria toxoid, and acellular pertussis vaccine, adsorbed Cami Fruth BILLING REPRESENTATIVE Work Phone: [facility] 10-17-2008 measles, mumps and rubella virus vaccine [facility] Work Phone: 01-18-2008 diphtheria, tetanus toxoids and acellular pertussis vaccine [facility] Work Phone: 01-18-2008 diphtheria, tetanus toxoids and acellular pertussis vaccine, unspecified formulation Cami Fruth BILLING REPRESENTATIVE Work Phone: [facility] 01-18-2008 poliovirus vaccine, inactivated [facility] Work Phone: 01-18-2004 pneumococcal conjuga te vaccine, 13 valent [facility] Work Phone: 01-18-2004 pneumococcal conjuga te vaccine, 7 valent Cami Fruth BILLING REPRESENTATIVE Work Phone: [facility] 01-18-2004 varicella virus vaccine [facility] Work Phone: 2003 diphtheria, tetanus toxoids and acellular pertussis vaccine [facility] Work Phone: 2003 diphtheria, tetanus toxoids and acellular pertussis vaccine, unspecified formulation Cami Fruth BILLING REPRESENTATIVE Work Phone: [facility] 2003 haemophilus influenz ae type b vaccine, conjugate unspecified formulation Cami Fruth BILLING REPRESENTATIVE Work Phone: [facility] 2003 haemophilus influenz ae type b vaccine, PRP-OMP conjugate [facility] Work Phone: 2003 hepatitis B vaccine, pediatric or pediatric/adolescent dosage Cami Fru BILLING REPRESENTATIVE Work Phone: [facility] 2003 hepatitis B vaccine, unspecified formulation [facility] Work Phone: 2003 poliovirus vaccine, inactivated [facility] Work Phone: 2003 diphtheria, tetanus toxoids and acellular pertussis vaccine [facility] Work Phone: 2003 diphtheria, tetanus toxoids and acellular pertussis vaccine, unspecified formulation Cami Fru BILLING REPRESENTATIVE Work Phone: [facility] 2003 haemophilus influenz ae type b vaccine, conjugate unspecified formulation Cami Fru BILLING REPRESENTATIVE Work Phone: [facility] 2003 haemophilus influenz ae type b vaccine, PRP-OMP conjugate [facility] Work Phone: 2003 pneumococcal conjuga te vaccine, 13 valent [facility] Work Phone: 2003 pneumococcal conjuga te vaccine, 7 valent Cami Fruth BILLING REPRESENTATIVE Work Phone: [facility] 2003 diphtheria, tetanus toxoids and acellular pertussis vaccine [facility] Work Phone: 2003 diphtheria, tetanus toxoids and acellular pertussis vaccine, unspecified formulation [facility] Work Phone: [facility] 2003 haemophilus influenz ae type b vaccine, conjugate unspecified formulation [facility] BILLING REPRESENTATIVE Work Phone: [facility] 2003 haemophilus influenz ae type b vaccine, PRP-OMP conjugate [facility] Work Phone: 2003 hepatitis B vaccine, pediatric or pediatric/adolescent dosage [facility] BILLING REPRESENTATIVE Work Phone: [facility] 2003 hepatitis B vaccine, unspecified formulation [facility] Work Phone: 2003 pneumococcal conjuga te vaccine, 13 valent [facility] Work Phone: 2003 pneumococcal conjuga te vaccine, 7 valent [facility] Work Phone: [facility] 2003 poliovirus vaccine, inactivated [facility] Work Phone: Payers Date Payer Category Payer Unknown [employer] [id number] 2022-Present [address] [place] [address] [id number] 2022 Unknown [id number] 2018 Unknown [id number] 2016 Unknown [id number] 2003 Unknown [id number] 2003 Unknown [id number] 2003 Unknown [id number] Social History Date Type Detail Facility Start: 10-12-2022 End: 06-09-2023 Tobacco smoking status NHIS Never smoked tobacco [facility] Start: 03-06-2021 Alcohol intake Current non-dr solution consultant of alcohol (finding) [email or web address] Phone: Start: 11-04-2020 History SDOH Financial 5 [email or web address] Phone: Start: 11-04-2020 History SDOH Food Worry 1 [email or web address] Phone: Start: 11-04-2020 History SDOH Transpo rt Med 2 [email or web address] Phone: Start: 2003 Sex Assigned At Not on file [employer] Phone: Start: 02-19-2023 End: 06-09-2023 Alcohol intake Lifetime non-drinker (finding) [facility] Start: 10-12-2022 End: 02-18-2023 History of Social function [facility] Start: 10-12-2022 End: 02-18-2023 Humiliation, Afraid, Rape, and Kick questionnaire [HARK] [facility] Within the last year , have you been afraid of your partner or ex-partner? No [facility] How often do you att end latter day or congregational services? Patient refused [facility] Are you now , , , , never or living with a partner? Never [facility] How often to you hav e a drink containing alcohol? Never [facility] Do you feel stress - tense, restless, nervous, or anxious, or unable to sleep at night because your mind is troubled all the time - these days [OSQ] To some extent [facility] (I/We) worried whecharly er (my/our) food would run out before (I/we) got money to buy more. Never true [facility] The food that (I/we) bought just didn't last, and (I/we) didn't have money to get more. DK or Refused [facility] Start: 06-09-2023 Tobacco use and exposure Smoke less tobacco non-user [facility] History of Present illness Narrative 06-09-2023 Alivia Pino MD - 06/09/2023 10:50 AM EST Note Date & Type Note Facility 06-09-2023 History of Presen t illness Narrative Subjective Patient ID: Simin Schuster is a 18 y.o. female who presents for Epistaxis (Nose Bleed) (Had 5 bleeds in 2 day span. Right side). Recurrent RT ant epistaxis. Last 7-15 minutes. Has many year h/o similar bleeds. No hematologic w/u. Nose has not been packed Review of Systems All other systems reviewed and are negative. Family History Problem Relation Name Age of Onset Migraines Mother Tiffani Schuster Unexplained Father Blue Hypertension Father Blue COPD Maternal Grandmother COPD Maternal Grandfather Hypertension Paternal Grandmother Schuster Hyperlipidemia Paternal Grandmother Terry Heart disease Paternal Grandfather CAD; pacemaker Thyroid cancer Sibling Active Ambulatory Problems Diagnosis Date Noted Constipation by delayed colonic transit 10/12/2022 Enlarged thyroid (CMS/HCC) 10/12/2022 Gastroesophageal reflux disease 10/12/2022 Cholelithiasis without cholecystitis 11/02/2016 Chronic allergic rhinitis due to pollen 09/03/2017 Incomplete right bundle branch block 11/10/2017 Irritable bowel syndrome with diarrhea 08/16/2017 PCOS (polycystic ovarian syndrome) 07/15/2016 Resolved Ambulatory Problems Diagnosis Date Noted No Resolved Ambulatory Problems Past Medical History: Diagnosis Date Asthma (CMS/HCC) IBS (irritable bowel syndrome) Nosebleed Past Surgical History: Procedure Laterality Date CHOLECYSTECTOMY @ 12 yrs old Allergies Allergen Reactions Amoxicillin Diarrhea Amoxicillin-Pot Clavulanate GI intolerance Current Outpatient Medications on File Prior to Visit Medication Sig Dispense Refill albuterol HFA 90 mcg/act inhaler Inhale 1 puff every 4 (four) hours if needed. hyoscyamine (Levsin) 0.125 MG tablet Take 0.125 mg by mouth every 4 (four) hours if needed for cramping or diarrhea. loratadine (Claritin) 10 MG tablet Take 10 mg by mouth if needed for allergies. montelukast (Singulair) 10 MG tablet Take 10 mg by mouth at bedtime. spironolactone (Aldactone) 50 MG tablet TAKE 1 TABLET BY MOUTH EVERY DAY (Patient not taking: Reported on 06/09/2023) 90 tablet 3 No current facility-administered medications on file prior to visit. Objective Last Recorded Vitals Vitals: 06/09/23 1036 BP: (!) 130/93 ENT Physical Exam Constitutional Appearance: patient appears well-developed, well-nourished and well-groomed, Head and Face Appearance: head appears normal and face appears atraumatic; Ear Ear Canals: right ear canal normal; left ear canal normal; Tympanic Membranes: right tympanic membrane normal; left tympanic membrane normal; Nose External Nose: nares patent bilaterally; external nose normal; Internal Nose: right prominent septal vessel present; Oral Cavity/Oropharynx Tongue: normal; Oral mucosa: normal; Hard palate: normal; Soft palate: normal; Tonsils: normal; Neck Neck: neck normal; neck palpation normal; Thyroid: thyroid normal; Respiratory Inspection: breathing unlabored; normal breathing rate; Auscultation: breath sounds are clear; Cardiovascular Inspection: extremities are warm and well perfused; no peripheral edema present; Auscultation: regular rate and rhythm; Assessment/Plan Diagnoses and all orders for this visit: Epistaxis, recurrent - Ambulatory referral to ENT Pt has recurrent bleeding due to prominent right ant septal veins. I will proceed with RT nasal endo and cautery under anesthesia. Check CBC and PT/PTT preop. documented in this encounter [facility] History of Present illness Narrative 06-01-2023 Cami Wagner BILLING REPRESENTATIVE - 06/01/2023 8:00 AM EST Note Date & Type Note Facility 06-01-2023 History of Presen t illness Narrative Simin Schuster is a 18 y.o. female presents with chief complaint of Epistaxis (Nose Bleed) (Lasting 10-15min, 5 times in the past 3 days, clotting ) HPI: HPI BILLING REPRESENTATIVE; presents with nosebleeds approx 5 times in last 3 days. Lasting about 15minutes each time and ending with clots. Always right nostril. Humidifier in room. Tried a moisturizing nasal spray. Denies sinus symptoms, fever/chills. SUBJECTIVE: MEDICATIONS: Current Outpatient Medications Medication Instructions albuterol HFA 90 mcg/act inhaler 1 puff, Inhalation, Every 4 hours PRN hyoscyamine (LEVSIN) 0.125 mg, Oral, Every 4 hours PRN loratadine (CLARITIN) 10 mg, Oral, As needed montelukast (SINGULAIR) 10 mg, Oral, Nightly spironolactone (ALDACTONE) 50 mg, Oral, Daily ALLERGIES: Allergies Allergen Reactions Amoxicillin Diarrhea Amoxicillin-Pot Clavulanate GI intolerance SURGICAL HISTORY: Past Surgical History: Procedure Laterality Date CHOLECYSTECTOMY @ 12 yrs old FAMILY HISTORY: Family History Problem Relation Name Age of Onset Migraines Mother Unexplained Father Hypertension Father COPD Maternal Grandmother COPD Maternal Grandfather Hypertension Paternal Grandmother Hyperlipidemia Paternal Grandmother Heart disease Paternal Grandfather CAD; pacemaker Thyroid cancer Sibling SOCIAL HISTORY: Social History Tobacco Use Smoking status: Never Vaping Use Vaping Use: Never used Substance Use Topics Alcohol use: Never Drug use: Never Depression: Not at risk (10/12/2022) PHQ-2 PHQ-2 Score: 0 REVIEW OF SYMPTOMS: Review of Systems Review of Systems Constitutional: Negative for fatigue, fever and unexpected weight change. HENT: Negative for congestion, dental problem, ear pain, postnasal drip, sinus pain and +sore throat and recurrent nosebleeds right nare. Eyes: Negative for discharge and visual disturbance. Respiratory: Negative for snoring, cough, shortness of breath and wheezing. Cardiovascular: Negative for chest pain and palpitations. Gastrointestinal: Negative for blood in stool, constipation, diarrhea, nausea and vomiting. Genitourinary: Negative for difficulty urinating, dysuria and enuresis. Musculoskeletal: Negative for arthralgias and back pain. Skin: Negative for color change, rash and wound. Allergic/Immunologic: Negative for food allergies. Neurological: Negative for dizziness and headaches. Psychiatric/Behavioral: Negative for self-injury and sleep disturbance. The patient is not nervous/anxious. OBJECTIVE: Visit Vitals BP 110/82 Pulse 81 Ht 5' 9 Wt 187 lb LMP 05/16/2023 BMI 27.62 kg/m OB Status Having periods Smoking Status Never BSA 2.03 m Physical Exam Constitutional: General: pt is not in acute distress. Appearance:Pt is not ill-appearing, toxic-appearing or diaphoretic. HENT: Head: Normocephalic and atraumatic. Right Ear: Tympanic membrane and ear canal normal. There is no impacted cerumen. Left Ear: Tympanic membrane and ear canal normal. There is no impacted cerumen. Nose: erythema and irritation greater in right nare than left. Mouth/Throat: Mouth: Mucous membranes are moist. Pharynx: Oropharynx is clear. No oropharyngeal exudate or posterior oropharyngeal erythema. Eyes: Extraocular Movements: Extraocular movements intact. Conjunctiva/sclera: Conjunctivae normal. Pupils: Pupils are equal, round, and reactive to light. Cardiovascular: Rate and Rhythm: Normal rate and regular rhythm. Pulses: Normal pulses. Heart sounds: No murmur heard. No friction rub. No gallop. Pulmonary: Effort: Pulmonary effort is normal. No respiratory distress. Breath sounds: No stridor. No wheezing, rhonchi or rales. Lymphadenopathy: Cervical: No cervical adenopathy. Skin: General: Skin is warm and dry. Capillary Refill: Capillary refill takes less than 2 seconds. Findings: No rash. Neurological: General: No focal deficit present. Mental Status: Pt is alert and oriented to person, place, and time. Mental status is at baseline. Psychiatric: Mood and Affect: Mood normal. Behavior: Behavior normal. Thought Content: Thought content normal. Judgment: Judgment normal. ASSESSMENT AND PLAN: Assessment/Plan Problem List Items Addressed This Visit None Visit Diagnoses Epistaxis, recurrent - Primary Relevant Orders Ambulatory referral to ENT Advised to hold pressure when bleeding stars. Continue humidifier. [place] saline gel to nose twice a day. See ENT for possible cautery. No follow-ups on file. documented in this encounter [facility] Evaluation note Note Date & Type Note Facility Evaluation note Diagnosis Breast pain, left Mastodynia documented in this encounter [email or web address] Phone: Evaluation note Note Date & Type Note Facility Evaluation note Diagnosis Epistaxis, recurrent- Primary documented in this encounter [facility] Evaluation note Note Date & Type Note Facility Evaluation note Diagnosis Epistaxis, recurrent documented in this encounter [facility] Reason for referral (narrative) Consultation (Routine) - Pending Review Note Date & Type Note Facility Reason for referral (narrati ve) Specialty Diagnoses / Procedures Referred By Contac t Referred To Contact Otolaryngology Diagnoses Epistaxis, recurrent Procedures MO OFFICE/OUTPATIENT [facility] 60 MINUTES Cami Wagner NP [address] [place] [address] Alivia Pino MD [facility] [place] [address] Referral ID Status Reason Start Date Expiration Date Visits Requested Visits Authorized [id number] Pending Review Specialty Services Required 06/01/2023 11/28/2023 1 1 [facility] Summary Purpose Family History No Family History Records FoundNo Family History Records FoundNo Family History Records FoundNo Family History Records Found Advance Directives No Advanced Directives Records FoundDocuments on File Type Date Recorded 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 Expl anation ACP-Advance Directive ACP-Power of Home Theater Installer Additional Source Comments INFORMATION SOURCE (unrecogn ized section and content) DATE CREATED AUTHOR 12/10/2017 [facility] DATE CREATED AUTHOR AUTHOR'S ORGANIZ ATION [facility] DATE CREATED AUTHOR AUTHOR'S ORGANIZ ATION 07/15/2021 [facility] dical Specialist DATE CREATED AUTHOR AUTHOR'S ORGANIZ ATION 06/11/2023 [facility] dical Specialists EPIC Reason for Visit (unrecogniz ed section and content) Specialty Diagnoses / Procedures Referred By Elvin bonilla Referred To Contact Radiology Diagnoses Breast pain, left Procedures US BREAST LIMITED LEFT US BREAST COMPLETE LEFT Deja Jim, PASSENGER VESSEL CHEF - CNM [address] [facility] [address] [place] [address] Referral ID Status Reason Start Date Expiration Date Visits Re quested Visits Authorized [id number] Open 03/06/2021 03/06/2022 1 1 Reason Comments Epistaxis (Nose Bleed) Lasting 10-15min, 5 times in the past 3 days, clotting Reason Comments Epistaxis (Nose Bleed) Had 5 bleeds in 2 day span. Right side Specialty Diagnoses / Procedures Referred By Elvin bonilla Referred To Contact Otolaryngology Diagnoses Epistaxis, recurrent Procedures MO OFFICE/OUTPATIENT [facility] 60 MINUTES Cami Wagner NP [address] [place] [address] Alivia Pino MD [address] [place] [address] Referral ID Status Reason Start Date Expiration Date V isits Requested Visits Authorized [id number] Closed Specialty Services Required 06/01/2023 11/28/2023 1 1 Care Teams (unrecognized sec tion and content) Customer Support Representative Relationship Specialty Start Date End Date Lynn Escoto MD [address] [facility] [address] [place], [place] [id number] PCP - General 09/21/12 Customer Support Representative Relationship Specialty Start Date End Date Haris Higuera DO [address] [place] [id number] PCP - General Family Medicine 10/09/22 Brittni Pedro BILLING REPRESENTATIVE [address] [place] [id number] PCP - Medical [employer] 09/24/22 Cami Wagner NP [address] [place] [phone] Nurse Practitioner Family Medicine 10/09/22 Customer Support Representative Relationship Specialty Start Date End Date Haris Higuera DO [address] [place] [id number] PCP - General Family Medicine 10/09/22 Brittni Pedro NP [address] [place] [address] PCP - Medical [employer] 09/24/22 Cami Wagner NP [address] [place], [place] [id number] Nurse Practitioner Family Medicine 10/09/22 Customer Support Representative Relationship Specialty Start Date End Date Haris Higuera DO [address] [place] [address] PCP - General Family Medicine 10/09/22 Brittni Pedro BILLING REPRESENTATIVE [address] [place] [address] PCP - Medical [employer] 09/24/22 Cami Wagner BILLING REPRESENTATIVE [address] [place] [address] Nurse Practitioner Family Medicine 10/09/22 Customer Support Representative Relationship Specialty Start Date End Date Haris Higuera DO [address] [place] [address] PCP - General Family Medicine 10/09/22 Brittni Pedro, BILLING REPRESENTATIVE [address] [place] [address] PCP - Medical [employer] 09/24/22 Cami Wagner NP [address] [place] [address] Nurse Practitioner Family Medicine 10/09/22 Customer Support Representative Relationship Specialty Start Date End Date Haris Higuera DO [address] [place] [address] PCP - General Family Medicine 10/09/22 Brittni Pedro, BILLING REPRESENTATIVE [address] [place] [address] PCP - Medical [employer] 09/24/22 Cami Wagner NP [address] [place] [address] Nurse Practitioner Family Medicine 10/09/22 FOR RECORDS PERTAINING TO PATIENTS WHO ARE OR HAVE BEEN ENROLLED IN A CHEMICAL DEPENDENCY/SUBSTANCEABUSE PROGRAM, SOME INFORMATION MAY BE OMITTED. This clinical summary was aggregated from multiple sources. Caution should be exercised in using it in the provision of clinical care. This summary normalizes information from multiple sources, and as a consequence, information in this document may materially change the coding, format and clinical context of patient data. In addition, data may be omitted in some cases. CLINICAL DECISIONS SHOULD BE BASED ON THE PRIMARY CLINICAL RECORDS. [facility] [employer] [facility]. provides no warranty or guarantee of the accuracy or completeness of information in this document.
[2023-06-22] MEDS: LACTATED RINGER'S SOLUTION 1,000 ML 50 ML IV (07:55)
[2023-06-22 08:05] LABS: HCG Qualitative NEGATIVE (NEGATIVE)
[2023-06-22] MEDS: BACITRACIN OINTMENT 28.4 GM TUBE 1 APPLIC TOPICAL (09:32)
[2023-06-22] MEDS: OXYMETAZOLINE HCL 0.05% NASAL SPRAY 30 SPRAY NS (09:32)
== END 2023-06-22 10:51 | disposition home or self-care (01) ==
PROVIDERS: PCP Nurse Practitioner; Visit Provider Otolaryngology
PROC: (CPT 160; principal; 2023-06-22 08:40)
DX: R04.0 Epistaxis (principal); J45.909 Unspecified asthma, uncomplicated; K58.9 Irritable bowel syndrome, unspecified; Z90.49 Acquired absence of other specified parts of digestive tract
CPT/HCPCS: 31238; 36415; 84703; J1094; J2704